=== PATIENT | female | born 1990 ===

== ENCOUNTER 2020-08-21 00:36 | Inpatient (IN) | payer OTHER ==
[~2020-08-21] VITALS: Ht 167.6 cm; Wt 83.5 kg
[2020-08-21 01:16] LABS: HCT 35.4 % (37.0-47.0); MCH 32.1 pg (25.0-31.0); MCHC 33.9 g/dL (32.0-36.0); MCV 94.7 fL (78.0-100.0); MPV 9.8 fL (6.0-9.5); RBC 3.74 M/uL (4.20-5.40); RDW 13.4 % (11.5-14.0); WBC 14.1 K/uL (4.0-10.5)
[2020-08-21 01:18] LABS: BILIRUBIN NEGATIVE (NEGATIVE); BLOOD NEGATIVE Ery/uL (NEGATIVE); CLARITY CLEAR (CLEAR); COLOR YELLOW (YELLOW); GLUCOSE (U) NORMAL (NORMAL); LEUKOCYTES NEGATIVE Leu/uL (NEGATIVE); NITRITE NEGATIVE (NEGATIVE); PROTEIN NEGATIVE (NEGATIVE); SPECIFIC GRAVITY 1.025 (1.001-1.030); UROBILINOGEN 0.2 mg/dL (0.2-1.0)
[2020-08-21 01:21] LABS: AMPHETAMINES NEGATIVE (NEGATIVE); BARBITURATES NEGATIVE (NEGATIVE); ECSTASY (MDMA) NEGATIVE (NEGATIVE); MARIJUANA (THC) NEGATIVE (NEGATIVE); METHADONE NEGATIVE (NEGATIVE); OPIATES NEGATIVE (NEGATIVE); OXYCODONE NEGATIVE (NEGATIVE)
[2020-08-22 06:18] LABS: HGB 10.4 g/dl (12.5-16.0); MCH 32.2 pg (25.0-31.0); MCHC 33.5 g/dL (32.0-36.0); MPV 10.1 fL (6.0-9.5); RBC 3.23 M/uL (4.20-5.40); RDW 13.3 % (11.5-14.0); WBC 14.2 K/uL (4.0-10.5)
== END 2020-08-23 14:00 | disposition home or self-care (01) | DRG 806 ==
LOC: FOB 00:36
PROVIDERS: ADMIT Obstetrics & Gynecology
PROC: 10E0XZZ Delivery of Products of Conception, External Approach (ICD-10-PCS; principal; 2020-08-21)
PROC: 10907ZC Drainage of Amniotic Fluid, Therapeutic from Products of Conception, Via Natural or Artificial Opening (ICD-10-PCS; 2020-08-21)
PROC: 3E0P7VZ Introduction of Hormone into Female Reproductive, Via Natural or Artificial Opening (ICD-10-PCS; 2020-08-21)
PROC: 3E033VJ Introduction of Other Hormone into Peripheral Vein, Percutaneous Approach (ICD-10-PCS; 2020-08-21)
PROC: 3E0234Z Introduction of Serum, Toxoid and Vaccine into Muscle, Percutaneous Approach (ICD-10-PCS; 2020-08-21)
DX: O99.02 Anemia complicating childbirth (principal); D62 Acute posthemorrhagic anemia; Z37.0 Single live birth; O99.324 Drug use complicating childbirth; Z3A.39 39 weeks gestation of pregnancy; F11.90 Opioid use, unspecified, uncomplicated; O99.52 Diseases of the respiratory system complicating childbirth; J45.909 Unspecified asthma, uncomplicated; Z20.822 Contact with and (suspected) exposure to COVID-19; O69.81X0 Labor and delivery complicated by cord around neck, without compression, not applicable or unspecified; O26.893 Other specified pregnancy related conditions, third trimester; Z67.11 Type A blood, Rh negative; O99.344 Other mental disorders complicating childbirth; F41.9 Anxiety disorder, unspecified
CPT/HCPCS: 36415; 80305; 81003; 85461; 86850; 86900; 86901; J2790; J7120; U0002

== ENCOUNTER 2021-02-09 08:48 | Inpatient (IN) | payer OTHER ==
[~2021-02-09] VITALS: Ht 168 cm; Wt 76.0 kg
[2021-02-09 09:24] LABS: BASOPHIL 0.3 % (0-2); EOSINOPHIL 0.8 % (0-5); HCT 42.5 % (37.0-47.0); HGB 14.3 g/dl (12.5-16.0); LYMPHOCYTE 12.9 % (15-48); MCH 31.2 pg (25.0-31.0); MCHC 33.6 g/dL (32.0-36.0); MCV 92.8 fL (78.0-100.0); MPV 9.5 fL (6.0-9.5); NEUTROPHIL 77.6 % (41-80); NRBC 0; PLT 275 K/uL (150-400); RBC 4.58 M/uL (4.20-5.40); RDW 12.4 % (11.5-14.0); WBC 10.6 K/uL (4.0-10.5)
[2021-02-09 09:45] LABS: ALBUMIN 4.1 g/dL (3.4-5.0); BILIRUBIN - TOTAL 0.7 mg/dL (0.2-1.0); BUN/CREAT RATIO (CALC) 16.4 RATIO; CREATININE 0.73 mg/dL (0.51-0.95); GLOBULIN (CALCULATION) 3.6 g/dL; POTASSIUM 3.7 mmol/L (3.5-5.1); TOTAL PROTEIN 7.7 g/dL (6.4-8.2)
[2021-02-09 12:10] LABS: LACTIC ACID 2.1 mmol/L (0.4-1.9)
[2021-02-09] MEDS ORDERED: BUSPAR5 MG PO ×2 (14:01→14:02)
[2021-02-09] MEDS ORDERED: PRENATAL FORMU1 EACH PO (14:01)
[2021-02-09 17:36] LABS: INR 1.06 (0.9-1.2); PROTHROMBIN TIME 13.2 SECONDS (11.8-13.4)
[2021-02-10 05:58] LABS: HCT 39.1 % (37.0-47.0); HGB 12.8 g/dl (12.5-16.0); MCH 31.6 pg (25.0-31.0); MCHC 32.7 g/dL (32.0-36.0); MCV 96.5 fL (78.0-100.0); MPV 9.9 fL (6.0-9.5); RBC 4.05 M/uL (4.20-5.40); RDW 12.6 % (11.5-14.0); WBC 7.7 K/uL (4.0-10.5)
[2021-02-10 06:28] LABS: ALBUMIN 3.5 g/dL (3.4-5.0); BILIRUBIN - TOTAL 1.1 mg/dL (0.2-1.0); BUN/CREAT RATIO (CALC) 9.9 RATIO; CREATININE 0.71 mg/dL (0.51-0.95); GLOBULIN (CALCULATION) 3.2 g/dL; POTASSIUM 3.7 mmol/L (3.5-5.1); TOTAL PROTEIN 6.7 g/dL (6.4-8.2)
[2021-02-10 14:50] LABS: HCG (URINE) SCREEN NEGATIVE (NEGATIVE)
[2021-02-11 06:08] LABS: HBSAG SCREEN Negative (Negative); HEP A AB, IGM Negative (Negative); HEP B CORE AB, IGM Negative (Negative); HEP C VIRUS AB <0.1 (0.0-0.9)
[2021-02-11 07:27] LABS: BASOPHIL 0.3 % (0-2); EOSINOPHIL 0.3 % (0-5); HGB 12.3 g/dl (12.5-16.0); LYMPHOCYTE 18.2 % (15-48); MCH 30.8 pg (25.0-31.0); MCHC 32.4 g/dL (32.0-36.0); MCV 95.2 fL (78.0-100.0); MONOCYTE 7.6 % (0-12); MPV 10.2 fL (6.0-9.5); NEUTROPHIL 73.3 % (41-80); NRBC 0; PLT 245 K/uL (150-400); RBC 3.99 M/uL (4.20-5.40); RDW 12.2 % (11.5-14.0); WBC 9.2 K/uL (4.0-10.5)
[2021-02-11 08:18] LABS: ALBUMIN 3.4 g/dL (3.4-5.0); BILIRUBIN - TOTAL 2.8 mg/dL (0.2-1.0); BUN/CREAT RATIO (CALC) 7.5 RATIO; CREATININE 0.67 mg/dL (0.51-0.95); GLOBULIN (CALCULATION) 3.3 g/dL; POTASSIUM 3.7 mmol/L (3.5-5.1); TOTAL PROTEIN 6.7 g/dL (6.4-8.2)
--- NOTE | 2021-02-11 18:00 | NUR ---
02/11 Ms. Valdes and her 2 children share a home with her boyfriend. Will monitor for discharge planning needs.
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
[2021-02-12 07:11] LABS: BASOPHIL 0.4 % (0-2); EOSINOPHIL 1.3 % (0-5); HCT 34.4 % (37.0-47.0); HGB 11.2 g/dl (12.5-16.0); LYMPHOCYTE 27.2 % (15-48); MCH 31.3 pg (25.0-31.0); MCHC 32.6 g/dL (32.0-36.0); MCV 96.1 fL (78.0-100.0); MONOCYTE 9.5 % (0-12); MPV 9.9 fL (6.0-9.5); NEUTROPHIL 61.3 % (41-80); NRBC 0; PLT 206 K/uL (150-400); RBC 3.58 M/uL (4.20-5.40); RDW 12.6 % (11.5-14.0); WBC 6.8 K/uL (4.0-10.5)
[2021-02-12 07:45] LABS: ALBUMIN 2.9 g/dL (3.4-5.0); BUN/CREAT RATIO (CALC) 4.3 RATIO; CREATININE 0.7 mg/dL (0.51-0.95); GLOBULIN (CALCULATION) 3.1 g/dL; POTASSIUM 3.1 mmol/L (3.5-5.1)
[2021-02-12 07:54] LABS: BILIRUBIN - TOTAL 0.7 mg/dL (0.2-1.0)
[2021-02-13 08:47] LABS: ALBUMIN 3.2 g/dL (3.4-5.0); BILIRUBIN - TOTAL 0.5 mg/dL (0.2-1.0); BUN/CREAT RATIO (CALC) 4.3 RATIO; CREATININE 0.7 mg/dL (0.51-0.95); GLOBULIN (CALCULATION) 3.5 g/dL; MAGNESIUM 1.9 mg/dL (1.8-2.4); POTASSIUM 3.5 mmol/L (3.5-5.1); TOTAL PROTEIN 6.7 g/dL (6.4-8.2)
[2021-02-13] MEDS ORDERED: NORCO 5-325 TA1 EACH PO ×2 (15:36→15:37)
== END 2021-02-13 18:00 | disposition home or self-care (01) | DRG 417 ==
LOC: FER 08:48 → FMS 12:10
PROVIDERS: Allergy & Immunology Allergy; Anesthesiology; Emergency Medicine; Internal Medicine; Student in an Organized Health Care Education/Training Program; ADMIT Family Medicine
PROC: 0FT44ZZ Resection of Gallbladder, Percutaneous Endoscopic Approach (ICD-10-PCS; principal; 2021-02-10 14:30)
PROC: BF13YZZ Fluoroscopy of Gallbladder and Bile Ducts using Other Contrast (ICD-10-PCS; 2021-02-10 14:30)
PROC: 0FC98ZZ Extirpation of Matter from Common Bile Duct, Via Natural or Artificial Opening Endoscopic (ICD-10-PCS; 2021-02-11)
PROC: BF10YZZ Fluoroscopy of Bile Ducts using Other Contrast (ICD-10-PCS; 2021-02-11)
DX: K80.43 Calculus of bile duct with acute cholecystitis with obstruction (principal); K85.80 Other acute pancreatitis without necrosis or infection; K91.89 Other postprocedural complications and disorders of digestive system; Z20.822 Contact with and (suspected) exposure to COVID-19; F41.9 Anxiety disorder, unspecified; E87.6 Hypokalemia; J45.909 Unspecified asthma, uncomplicated; G89.29 Other chronic pain; Z79.899 Other long term (current) drug therapy; Z88.8 Allergy status to other drugs, medicaments and biological substances; Z91.030 Bee allergy status; Z83.3 Family history of diabetes mellitus; Z82.49 Family history of ischemic heart disease and other diseases of the circulatory system
CPT/HCPCS: 36415; 74022; 74300; 74328; 76705; 80048; 80053; 80074; 83605; 83690; 83735; 84703; 85025; 85610; 87040; C1725; C1758; C9113; J1100; J1170; J1200; J1610; J1644; J1885; J2060; J2250; J2270; J2405; J2543; J2704; J2710; J3010; J7030; J7120; Q9967; U0002

== ENCOUNTER 2021-04-12 11:58 | Emergency (ER) | payer OTHER ==
[~2021-04-12 11:58] MED LIST: BUSPAR5 MG PO; NORCO 5-325 TA1 EACH PO; PRENATAL FORMU1 EACH PO
[2021-04-12 12:49] LABS: BASOPHIL 0.4 % (0-2); EOSINOPHIL 1.5 % (0-5); HCT 43.7 % (37.0-47.0); HGB 14.6 g/dl (12.5-16.0); LYMPHOCYTE 17.8 % (15-48); MCH 31.2 pg (25.0-31.0); MCHC 33.4 g/dL (32.0-36.0); MCV 93.4 fL (78.0-100.0); MONOCYTE 7.3 % (0-12); MPV 9.8 fL (6.0-9.5); NEUTROPHIL 72.8 % (41-80); NRBC 0; PLT 309 K/uL (150-400); RBC 4.68 M/uL (4.20-5.40); RDW 12.7 % (11.5-14.0); WBC 8.1 K/uL (4.0-10.5)
[2021-04-12 13:00] LABS: BILIRUBIN NEGATIVE (NEGATIVE); BLOOD NEGATIVE Ery/uL (NEGATIVE); CLARITY CLEAR (CLEAR); COLOR YELLOW (YELLOW); GLUCOSE (U) NORMAL (NORMAL); LEUKOCYTES NEGATIVE Leu/uL (NEGATIVE); NITRITE NEGATIVE (NEGATIVE); PROTEIN NEGATIVE (NEGATIVE); SPECIFIC GRAVITY <=1.005 (1.001-1.030); UROBILINOGEN 0.2 mg/dL (0.2-1.0); pH 5.5 (5.0-9.0)
[2021-04-12 13:11] LABS: BUN/CREAT RATIO (CALC) 6.2 RATIO; CREATININE 0.65 mg/dL (0.51-0.95); POTASSIUM 4.2 mmol/L (3.5-5.1)
[2021-04-12 13:25] LABS: CORONAVIRUS 2019 SARS-COV-2 NEGATIVE (NEGATIVE); INFLUENZA A NAA NEGATIVE (NEGATIVE)
[2021-04-12] MEDS ORDERED: AMOXICILLIN500 MG PO (14:54)
== END 2021-04-12 15:06 | disposition home or self-care (01) ==
LOC: FER 11:58
PROVIDERS: Nurse Practitioner Family
DX: R10.11 Right upper quadrant pain (principal); K08.89 Other specified disorders of teeth and supporting structures; J45.909 Unspecified asthma, uncomplicated; F17.210 Nicotine dependence, cigarettes, uncomplicated; Z88.1 Allergy status to other antibiotic agents; Z20.822 Contact with and (suspected) exposure to COVID-19
CPT/HCPCS: 36415; 80048; 81003; 85025; J1885; J2405; J7030; Q0163; Q9967; U0002